=== PATIENT | female | born 1995 ===

== ENCOUNTER → 2018-10-24 | Outpatient (CLI) | payer OTHER ==
--- NOTE | 2018-10-28 15:34 | RADIOLOGY IMAGING REPORT ---
FACILITY: [facility] PATIENT NAME: Ruddy Reyna : 1995 MR: [id number] V: [id number] EXAM DATE: ORDERING PHYSICIAN: CAROL PATEL TECHNOLOGIST: Location: [facility] Patient: Ruddy Reyna : 1995 Visit/Account:[id number] Date of Sevice: 10/24/2018 ABDOMEN/PELVIS W/WO CONTRAST COMPARISONS: None. ADDITIONAL PERTINENT HISTORY: Nausea and vomiting and cramping for 2 days. TECHNIQUE: Multiple axial images were obtained from the lung bases through the lesser trochanters bef ore and after the IV administration of IV contrast. One of the following dose optimization technique s was utilized in the performance of this exam: Automated exposure control; adjustment of the mA and/ or kV according to the patient's size; or use of an iterative reconstruction technique. Specific de tails can be referenced in the facility's radiology CT exam operational policy. CONTRAST: 75 ml of Isovue-370 FINDINGS: Lung bases: Negative. Free air and free fluid: None. Liver: Negative. Spleen: Negative. Kidneys, ureters and urinary bladder: Negative. Adrenal glands: Negative. Pancreas: Negative. Gallbladder: Negative. Bowel and mesentery: Negative including a normal-appearing appendix in the right lower quadrant.. Pelvic contents: Negative Lymph node assessment: Negative. Retroperitoneum: Negative. Abdominal vasculature: Negative. Surrounding soft tissues: Negative. Osseous structures: Negative. IMPRESSION: Normal CT of the abdomen and pelvis with and without contrast Report Dictated By: Blake Espana MD at 10/24/2018 7:16 PM Report E-Signed By: Blake Espana MD at 10/24/2018 7:21 PM WSN:[id number]
== END ==
PROVIDERS: ATTEND Nurse Practitioner Family
DX: D72.829 Elevated white blood cell count, unspecified (principal)
CPT/HCPCS: 74178; Q9967

== ENCOUNTER → 2018-10-24 | Outpatient (REF) | payer OTHER ==
[2018-10-24 13:46] LABS: PLATELET COUNT, AUTOMATED 348 K/uL (150-450)
== END ==
PROVIDERS: ATTEND Nurse Practitioner Family
DX: R11.10 Vomiting, unspecified (principal)
CPT/HCPCS: 82040; 82247; 82310; 82374; 82435; 82565; 82947; 84075; 84132; 84155; 84295; 84450; 84460; 84520; 85025